=== PATIENT | male | born 1990 | race Caucasian/White ===

== ENCOUNTER 2015-11-29 20:42 | Emergency (ER) | payer BC ==
[~2015-11-29 20:42] MED LIST: DEXT5TAB15 PO
--- NOTE | 2015-11-29 21:00 | NUR ---
CALLED FOR PT NO ANSWER.PT TOLD [employer] HE DECIDED NOT TO BE SEEN.LWBT
== END 2016-05-19 | disposition left against medical advice (07) ==
LOC: ER 05-19 12:19
DX: Z53.21 Procedure and treatment not carried out due to patient leaving prior to being seen by health care provider (principal)